=== PATIENT | female | born 1995 | race Caucasian/White ===

== ENCOUNTER 2017-10-20 11:11 | Day surgery (SDC) | payer OTHER ==
[2017-10-20] MEDS ORDERED: FENTAnyl 50 MCG/ML VIAL (12:41)
[2017-10-20] MEDS ORDERED: PROPOFOL 20 ML (12:41)
== END 2017-10-20 14:42 | disposition home or self-care (01) ==
LOC: GIL 11:11
DX: K21.9 Gastro-esophageal reflux disease without esophagitis (principal); K29.60 Other gastritis without bleeding; K44.9 Diaphragmatic hernia without obstruction or gangrene
CPT/HCPCS: 43239; 84703; 88305